=== PATIENT | male | born 1940 | race Caucasian/White ===

== ENCOUNTER 2019-06-10 07:27 | Day surgery (SDC) | payer OTHER ==
[~2019-06-10 07:27] MED LIST: CHILDREN'S ASPI81 MG PO; COZAAR50 MG PO; HYDRALAZINE HCL50 MG PO; JANUMET 50-1,01 EACH PO; NEURONTIN300 MG PO; NORVASC2.5 M1 PO; SINGULAIR4 M1 PO; TAMS0.4C PO; VITAMIN B12-FO1 EACH PO
== END 2019-06-10 16:00 | disposition home or self-care (01) ==
LOC: CIR.AMB 07:27
DX: M50.321 Other cervical disc degeneration at C4-C5 level (principal); M50.322 Other cervical disc degeneration at C5-C6 level; M50.323 Other cervical disc degeneration at C6-C7 level; M50.33 Other cervical disc degeneration, cervicothoracic region; M47.812 Spondylosis without myelopathy or radiculopathy, cervical region; M47.813 Spondylosis without myelopathy or radiculopathy, cervicothoracic region

== ENCOUNTER 2020-12-20 10:40 | Outpatient (CLI) | payer OTHER | END 2020-12-20 10:59 | disposition home or self-care (01) | LOC: SONOGRAMA 10:40 | PROVIDERS: ATTEND Pathology Anatomic Pathology & Clinical Pathology | DX: E04.1 Nontoxic single thyroid nodule (principal) ==